=== PATIENT | male | born 1960 | race Caucasian/White ===

== ENCOUNTER 2025-06-01 10:49 | Day surgery (SDC) | payer BC, SELFPAY ==
--- OUTSIDE RECORDS SUMMARY | 2024-05-31 09:45 | XMS_ITS ---
Author Organization [facility] [place] Address [address] [facility] [address] [place] [address] Care Team Providers Care Supervisor Lamp Shades Name Role Phone Migration, Provider Unavailable Unavailable REASON FOR VISIT Sick Visit Encounters Encounter Location Date Provider Diagnosis [facility], [address] [place] [address] 05/31/2024 Provider Migration Plan Of Treatment Next Appt Details Provider Name:Margaret Zeng, 08/12/2025 04:00:00 PM, [address] [place] [address], Suite [facility], [place], [address], [phone] Progress Notes * DAVINALIZET SorensenDOB:1960 ( 64 yo M)Acc No.[id number]:05/31/2024 Progress Notes Patient: LIZET BALL Provider: Krystin Acosta :1960 A ge:63 Y S ex:Male Date:05/31/2024 Address:[address] [place], [place] [phone] Subjective: * Chief Complaints: * S ick Visit * Ocular Surgical History: Objective: Vision Examination: * Electronic signature of Prov ider Migration on 05/25/2025 at 07:43 PM EDT Sign off status: Pending * Provider: Krystin orr Migration Date: Generated for Nkechi rosado/Kev/eTransmitting on: 07:43 PM EDT
--- OUTSIDE RECORDS SUMMARY | 2024-05-31 14:29 | XMS_ITS | Encounter Summary ---
Author Organization [facility] [place] [address] Care Team Providers Care Newspaper Clipper Name Role Phone Robles Box MD Primary Care Provider Encounter Details Date Type Department Care Team (Latest Contact Info) Description 05/31/2024 2:29 PM EDT Hospital Encounter TH HISTORIC ENCOUNTERS EASTERN CONVERSION ONLY Robles Box MD [address] [facility] [address] [place] [address] Pain in unspecified shoulder Social History Tobacco Use Types Packs/Day Years Used Date Smoking Tobacco: Former Smokeless Tobacco: Never Sex and Gender Information Value Date Recorded Sex Assigned at Male 06/17/2024 1:54 PM EST Legal Sex Male 2:17 PM EST Gender Identity Male 06/17/2024 1:54 PM EST Sexual Orientation Not on file documented as of this encounter Plan of Treatment Not on file documented as of this encounter Procedures Procedure Name Priority Date/Time Associated Diagnosis Comments CR FEMUR =>2 VIEWS BL Routine 06/01/2024 11:12 AM EDT Pain in unspecified shoulder CR SHOULDER RT MIN 2 VIEW Routine 06/01/2024 11:10 AM EDT Pain in unspecified shoulder documented in this encounter Results * CR FEMUR =>2 VIEWS BL (06/01/2024 11:12 AM EDT) Anatomical Region Laterality Modality Radiographic Caroline ging 05/31/2024 2:33 PM EDT Narrative 06/01/2024 11:12 AM EDT [facility] Diagnostic Imaging Department [address] [place] [address] Patient: LIZET RICHARDS./Age/Sex: 1960 - 63 - M Unit#: [id number] Location/Status: SPDIGEN/REG CLI Mnemonic[id number] Ordering Physician: ROBLES BOX MD CR Femur =>2 Views BL - 05/31/24 - 2794 Report Status:Signed INDICATION: bilateral leg pain, arthritis FINDINGS: 2 views of both femurs were obtained. There is no evidence of fracture or dislocation. No radiopaque foreign body or periosteal reaction is noted. There is no significant soft tissue abnormality. No significant arthritic changes noted. CONCLUSION: No evidence of bilateral femur fracture or dislocation. Dictating Physician: KRISTINA VICTORIA MD Electronically Signed by: KRISTINA VICTORIA MD Dic Date/Time: 06/01/24 1110 Sign date/Time: 06/01/24 1112 Procedure Note Kristina Victoria MD - 06/05/2024 [facility] Diagnostic Imaging Department [address] [place] [address] Patient: LIZET RICHARDS/Age/Sex: 1960 - M Unit#: [id number] Location/Status: SPDIGEN/REG CLI Mnemonic/Ordering Site: [id number]/[facility]DI Ordering Physician: ROBLES BOX MD CR Femur =>2 Views BL - 05/31/24 - 1453 Report Status:Signed INDICATION: bilateral leg pain, arthritis FINDINGS: 2 views of both femurs were obtained. There is no evidence of fracture or dislocation. No radiopaque foreign body or periosteal reactionis noted. There is no significant soft tissue abnormality. No significantarthritic changes noted. CONCLUSION: No evidence of bilateral femur fracture or dislocation. Dictating Physician: KRISTINA VICTORIA MD Electronically Signed by: KRISTINA VICTORIA MD Dic Date/Time: 06/01/24 1110 Sign date/Time: 06/01/24 1112 us Robles Box MD IMG XR PROCEDURES Final Res ult * CR SHOULDER RT MIN 2 VIEW (06/01/2024 11:10 AM EDT) Anatomical Region Laterality Modality Radiographic Caroline ging 05/31/2024 2:33 PM EDT Narrative 06/01/2024 11:10 AM EDT [facility] Diagnostic Imaging Department [address] [place] [address] Patient: LIZET RICHARDS./Age/Sex: 1960 - M Unit#: [id number] Location/Status: SPDIGEN/REG CLI Mnemonic/Ordering Site: SHOULDRT/[facility] Ordering Physician: ROBLES BOX MD CR Shoulder RT Min 2 View - 05/31/24 - 2994 Report Status:Signed INDICATION: Shoulder pain FINDINGS: Minimum of 2 views of the right shoulder were obtained. No prior studies available for comparison. No fracture or dislocation. No radiopaque foreign body or periosteal reaction is noted. No significant soft tissue abnormality. Moderate degenerative changes along the AC joint. IMPRESSION: Degenerative changes without acute fracture or dislocation. Dictating Physician: KRISTINA VICTORIA MD Electronically Signed by: KRISTINA VICTORIA MD Dic Date/Time: 06/01/241109 Sign date/Time: 06/01/24 111 Procedure Note Kristina Victoria MD - 06/05/2024 [facility] Diagnostic Imaging Department [address] [place] [address] Patient: LIZET RICHARDS/Age/Sex: 1960 - 63 - M Unit#: [id number] Location/Status: SPDIGEN/REG CLI Mnemonic/Ordering Site: SHOULDRT/[facility]DI Ordering Physician: ROBLES BOX MD CR Shoulder RT Min 2 View - 05/31/24 - 1454 Report Status:Signed INDICATION: Shoulder pain FINDINGS: Minimum of 2 views of the right shoulder were obtained. Noprior studies available for comparison. No fracture or dislocation. No radiopaque foreign body or periostealreaction is noted. No significant soft tissue abnormality. Moderate degenerativechanges along the AC joint. IMPRESSION: Degenerative changes without acute fracture or dislocation. Dictating Physician: KRISTINA VICTORIA MD Electronically Signed by: KRISTINA VICTORIA MD Dic Date/Time: 06/01/24 1110 Sign date/Time: 06/01/24 1110 Robles Box MD IMG XR PROCEDURES Final Res ult documented in this encounter Visit Diagnoses Diagnosis Pain in unspecified shoulder documented in this encounter Care Teams Newspaper Clipper Relationship Specialty Start Date End Date Robles Box MD [address] [place] [address] PCP - General Internal Medicine 07/13/18 documented as of this encounter
--- OUTSIDE RECORDS SUMMARY | 2025-02-23 07:30 | XMS_ITS ---
Author Organization [facility] [place] Address [address] [facility] [address] [place] [address] Care Team Providers Care Support Assistant Name Role Phone Margaret Zeng Unavailable [phone] Allergies No Known Allergies REASON FOR VISIT present for medication refill Medications Medication SIG (Take, Route, Frequency, Duration) Notes Start Date End Date Status Allopurinol 100 MG Tablet 1 tablet Orall y Once a day; Duration: 30 days 02/23/2025 Active Indomethacin 50 MG Capsule 1 capsule wit h food or milk Orally Twice a day Active Viagra 100 MG Tablet 1 tablet as needed Orally Once a day; Duration: 30 day(s) 01/27/2025 02/26/2025 Active amLODIPine Besylate 2.5 MG Tablet 1 tablet Orally Once a day; Duration: 30 days 02/23/2025 Active Losartan Potassium 100 MG Tablet 1 tablet Orally Once a day; Duration: 90 days Active Social History Section Notes: denies smoking alcohol-12 pack beer weekly caffeine-little to none Problems Problem Type SNOMED Code ICD Code Onset Dates Problem Status W/U Status Risk Notes Problem Primary gout (86910169) Idiopathic gout, unspecified site (M10.00) Active confirmed Vital Signs Blood pressure systolic 150 mm Hg 02/24/20 25 Blood pressure diastolic 88 mm Hg 025 Heart Rate 85 /min 02/23/2025 Respiratory Rate 20 /min 02/23/2025 Height 71 in 02/23/2025 Weight 203 lbs 02/23/2025 BMI 28.31 kg/m2 02/23/2025 Oximetry 97 % 02/23/2025 Height-cm 180.34 cm 02/23/2025 Weight-kg 92.08 kg 02/23/2025 Encounters Encounter Location Date Provider Diagnosis [facility] [address] [facility] [address] [place] [address] 02/23/2025 Margaret Zeng Benign essential hypertension I10 and Idiopathic gout, unspecified site M10.00 Assessments Encounter Date Diagnosis (ICD Code) Assessment Notes Treatment Notes Treatment Clinical Notes Section Notes 02/23/2025 Benign essential hypertension (ICD-10 - I10) 02/23/2025 Idiopathic gout, unspecified site (ICD-10 - M10.00) Plan Of Treatment Medication Medication Name Sig Start Date Stop Date Notes Allopurinol 100 MG Tablet 1 tablet Orall y Once a day; Duration: 30 days 02/23/2025 amLODIPine Besylate 2.5 MG Tablet 1 tablet Orally Once a day; Duration: 30 days 02/23/2025 Losartan Potassium 100 MG Tablet 1 table t Orally Once a day; Duration: 90 days Next Appt Details Provider Name:Margarether Zeng, 08/12/2025 04:00:00 PM, [address] [facility], [address] [facility], [place], [address], [phone] History and Physical Notes * HPI (History of Present Illness) Category Sub-Category Detail Notes Category Not es Depression screening PHQ-9 Little inte rest or pleasure in doing things: Not at all Feeling down, depressed, or hopeless: No t at all Trouble falling or staying asleep, or sl eeping too much: Not at all Feeling tired or having little energy: S everal days Poor appetite or overeating: Not at all Feeling bad about yourself o r that you are a failure, or have let yourself or your family down: Not at all Trouble concentrating on thi ngs, such as reading the newspaper or watching television: Not at all Moving or speaking so slowly that other people could have noticed; or the opposite, being so fidgety or restless that you have been moving around a lot more than usual: Not at all Thoughts that you would be b delfina off or of hurting yourself in some way: Not at all Total Score: 1 Interpretation: Minimal Depression Progress Notes * LIZET GHOSHDOB:1960 ( 64 yo M)Acc No.[id number]:02/23/2025 Progress Notes Patient: Galina JANELIZET Sorensen Provider: Sandra Zeng :1960 A ge:64 Y S ex:Male Date:02/23/2025 Address:[address] [place], [place] [id number] Subjective: * Chief Complaints: * P resent for medication refill * HPI: D epression screening: PHQ-9 L ittle interest or pleasure in doing things N ot at all, F eeling down, depressed, or hopeless N ot at all, T rouble falling or staying asleep, or sleeping too much N ot at all, F eeling tired or having little energy S everal days, P oor appetite or overeating N ot at all, F eeling bad about yourself or that you are a failure, or have let yourself or your family down N ot at all, T rouble concentrating on things, such as reading the newspaper or watching television N ot at all, M oving or speaking so slowly that other people could have noticed; or the opposite, being so fidgety or restless that you have been moving around a lot more than usual N ot at all, T houghts that you would be better off or of hurting yourself in some way N ot at all, T otal Score 1 ,?Interpretation M inimal Depression. * Medical History: Eye Dr Medical History Verified * Surgical History: right elbow and face Surgical History verified. * Hospitalization/Major Diagno stic Procedure: Denies Past Hospitalization. * Family History: F ather: . M other: . P aternal Grandfather: . P aternal Grandmother: . M aternal Grandfather: . M aternal Grandmother: . B rother: alive. 2 brother(s) - healthy. 2 son(s) - healthy. . denies health care proxy. * Social History: Social History Verified. d enies smoking alcohol-12 pack beer weekly caffeine-little to none. * Medications: T akingLosartan Potassium 100 MG Tablet 1 tablet Orally Once a day Indomethacin 50 MG Capsule 1 capsule with food or milk Orally Twice a day Viagra 100 MG Tablet 1 tablet as needed Orally Once a day , stop date 02/26/2025Medication List reviewed and reconciled with the patientTaking Losartan Potassium 100 MG Tablet 1 tablet Orally Once a day Taking Indomethacin 50 MG Capsule 1 capsule with food or milk Orally Twice a day Taking Viagra 100 MG Tablet 1 tablet as needed Orally Once a day , stop date 02/26/2025Medication List reviewed and reconciled with the patient * Allergies: N .K.D.A.yesAllergies Verified. Objective: * Vitals: B P:150/88mm Hg, HR:85/min, RR:20/min, Oxygen sat %:97%, Ht: 71 in, Wt:203lbs, BMI:28.31Index, Wt-k.08 kg, Ht-cm: 180.34 cm, Body Surface Area: 2.15. Assessment: * Assessment: 1. B enign essential hypertension - I10 2 . I diopathic gout, unspecified site - M10.00 Plan: * Treatment: 2. I diopathic gout, unspecified site Start Allopurinol Tablet, 100 MG, 1 tablet, Orally, Once a day, 30 days, 30, Refills 3. * Electronic signature of Maurice her Zeng on 05/25/2025 at 07:42 PM EDT Sign off status: Pending * Provider: Sandra Zeng Date: 0 02/23/2025 Generated for Nkechi rosado/Kev/Drew on: 1 07:42 PM EDT
--- OUTSIDE RECORDS SUMMARY | 2025-05-24 09:15 | XMS_ITS ---
Author Organization [facility] [place] Address [address] [facility] [facility] [address] [place] [address] Care Team Providers Care Banjo Repairer Name Role Phone Margaret Zeng Unavailable [phone] Allergies Allergen (clinical drug ingredient) Drug/Non Drug Allergy documented on EMR Reaction Allergy Type Onset Date Status Iodinated contrast media (substance) Iodinated Contrast Media Unknown Drug Allergy Active REASON FOR VISIT Clr for Eye Sx, Patient having eye surgery Medications Medication SIG (Take, Route, Frequency, Duration) Notes Start Date End Date Status Allopurinol 100 MG Tablet 1 tablet Orall y Once a day; Duration: 30 days 02/23/2025 Not-Takin g amLODIPine Besylate 2.5 MG Tablet 1 tablet Orally Once a day; Duration: 30 days 02/23/2025 Active Losartan Potassium 100 MG Tablet 1 tablet Orally Once a day; Duration: 90 days Active Indomethacin 50 MG Capsule 1 capsule with food or milk Orally Twice a day As needed Active Social History Section Notes: denies smoking alcohol-12 pack beer or less weekly caffeine-little to none Substances: Denies Vital Signs Blood pressure systolic 135 mm Hg 05/24/20 25 Blood pressure diastolic 80 mm Hg 025 Heart Rate 94 /min 05/24/2025 Respiratory Rate 19 /min 05/24/2025 Height 71 in 05/24/2025 Weight 207.8 lbs 05/24/2025 BMI 28.98 kg/m2 05/24/2025 Oximetry 96 % 05/24/2025 Height-cm 180.34 cm 05/24/2025 Weight-kg 94.26 kg 05/24/2025 Encounters Encounter Location Date Provider Diagnosis [facility], [address] [address] 05/24/2025 Margaret Zeng Plan Of Treatment Next Appt Details Provider Name:Margaret Zeng, 08/12/2025 04:00:00 PM, [address] [facility], [address], [place], [address], [phone] Progress Notes * LIZET GHOSHDOB:1960 ( 64 yo M)Acc No.[id number]:05/24/2025 Patient: LIZET BALL Provider: Sandra owen Hongmeredith :1960 A ge:64 Y S ex:Male Date:05/24/2025 Address:[address] [place], [place] [id number] Subjective: * Chief Complaints: * C lr for Eye SxPatient having eye surgery * Medical History: Gout, HTN Medical History Verified * Surgical History: right elbow and face cataracts * Family History: F ather: . M other: . P aternal Grandfather: . P aternal Grandmother: . M aternal Grandfather: . M aternal Grandmother: . B rother: alive. 2 brother(s) - healthy. 2 son(s) - healthy. . F amily History Verified..? denies health care proxy. * Social History: Social History Verified. d enies smoking alcohol-12 pack beer or less weekly caffeine-little to none Substances: Denies. * Medications: T akingIndomethacin 50 MG Capsule 1 capsule with food or milk Orally Twice a day As neededLosartan Potassium 100 MG Tablet 1 tablet Orally Once a day amLODIPine Besylate 2.5 MG Tablet 1 tablet Orally Once a day Taking Indomethacin 50 MG Capsule 1 capsule with food or milk Orally Twice a day As neededTaking Losartan Potassium 100 MG Tablet 1 tablet Orally Once a day Taking amLODIPine Besylate 2.5 MG Tablet 1 tablet Orally Once a day Not-TakingAllopurinol 100 MG Tablet 1 tablet Orally Once a day Not- Taking Allopurinol 100 MG Tablet 1 tablet Orally Once a day * Allergies: I odinated Contrast MediayesAllergies Verified. Objective: * Vitals: B P:135/80mm Hg, HR:94/min, RR:19/min, Oxygen sat %:96%, Ht: 71 in, Wt:207.8lbs, BMI:28.98Index, Wt-k.26 kg, Ht-cm: 180.34 cm, Body Surface Area: 2.17. * Electronic signature of Maurice Zeng on 05/25/2025 at 07:42 PM EDT Sign off status: Pending * Provider: Sandra Zeng Date: 1 Generated for Nkechi rosado/Kev/Drwe on: 1 07:42 PM EDT
--- OUTSIDE RECORDS SUMMARY | 2025-05-25 19:42 | XMS_ITS | Patient Health Record ---
Author Organization [facility], [place] Address [address] [facility] [address] [place] [address] Care Team Providers Care Fireboat Operator Name Role Phone Hugo Garcia Unavailable [phone] Migration, Provider Unavailable Unavailable Margaret Zeng Unavailable [phone] Allergies Allergen (clinical drug ingredient) Drug/Non Drug Allergy documented on EMR Reaction Allergy Type Onset Date Status Iodinated contrast media (substance) Iodinated Contrast Media Unknown Drug Allergy Active Reason For Referral No Information Medications Medication SIG (Take, Route, Frequency, Duration) [...] alcohol-12 pack beer weekly caffeine-little to none denies smoking alcohol-12 pack beer or less weekly caffeine-little to none Substances: Denies Problems Problem Type SNOMED Code ICD Code Onset Dates Problem Status W/U Status Risk Notes Problem Primary gout (57750191) Idiopathic gout, unspecified site (M10.00) Active confirmed Vital Signs Heart Rate 94 /min 05/24/2025 Respiratory Rate 19 /min 05/24/2025 Height-cm 180.34 cm 05/24/2025 Oximetry 96 % 05/24/2025 Blood pressure diastolic 80 mm Hg 05/24/2025 Weight-kg 94.26 kg 05/24/2025 Height 71 in 05/24/2025 Blood pressure systolic 135 mm Hg 05/24/2025 Weight 207.8 lbs 05/24/2025 BMI 28.98 kg/m2 05/24/2025 Encounters Encounter Location Date Provider Diagnosis [facility] [place] [address] [facility] [address] [place] [address] 05/31/2024 Provider Migration [facility] [place] [address] [facility] [address] [place] [address] 02/23/2025 Margaret Zeng Benign essential hypertension I10 and Idiopathic gout, unspecified site M10.00 [facility] [place] [address] [facility] [address] [place] [address] 05/24/2025 Margaret Zeng [facility], [address] [address] 01/25/2025 Hugo Garcia [facility], [address] [address] 01/27/2025 Hugo Garcia Assessments Encounter Date Diagnosis (ICD Code) Assessment Notes Treatment Notes Treatment Clinical Notes Section Notes 02/23/2025 Benign essential hypertension (ICD-10 - I10) 02/23/2025 Idiopathic gout, unspecified site (ICD-10 - M10.00) Plan Of Treatment Next Appt Details Provider Name:Margaret Zeng, 08/12/2025 04:00:00 PM, [address] [place] [address], [place] [address], [place], [address], [phone] Insurance Providers Payer Name Payer Address Payer Phone Subscriber Number Group Number Insured Name Patient Relationship to Insured Coverage Start Date Coverage End Date [employer] [address] [place] [phone] [id number] LIZET GHOSH Self - patient is the insured Medical (General) History Medical History History ICD Code Gout, HTN Surgical History Surgery Date(Month/Year) right elbow and face cataracts
--- OUTSIDE RECORDS SUMMARY | 2025-05-25 19:42 | XMS_ITS | Clinical Summary ---
Author Organization [facility] Address [address] [place] [address] Care Team Providers Care Preschool Teacher Aide Name Role Phone Robles Davidson Primary Care Provider Allergies No known active allergies Medications oxyCODONE IR (ROXICODONE) 5 mg tablet Take 1 tablet (5 mg total) by mouth every 6 hours as needed (Severe pain). Max Daily Amount: 20 mg 14 tablet 07/22/2022 Active Active Problems Problem Noted Date Diagnosed Date Lateral epicondylitis of right elbow 07/19/2022 Overview (07/19/2022): Added automatically from request for surgery [id number] Social History Tobacco Use Types Packs/Day Years Used Date Smoking Tobacco: Never Assessed Sex and Gender Information Value Date Recorded Sex Assigned at Not on file Legal Sex Male 10:47 AM EDT Gender Identity Not on file Sexual Orientation Not on file Plan of Treatment Health Maintenance Due Date Last Done Comments Cologuard 1960 Colon Cancer Screening 1960 Colonoscopy 1960 FOBT / Fit Test 1960 HIV Screening 1960 Hepatitis C Screening 1960 Sigmoidoscopy 1960 DTaP,Tdap,and Td Vaccines (1 - Tdap) 12/30/1981 Pneumococcal Vaccine: 50+ Ye ars (1 of 1 - PCV) 12/30/2009 Zoster Vaccines (1 of 2) 12/30/2009 Alcohol/Substance Use Screening 08/04/2024 Depression Screening and Follow-Up 08/04/2024 Health Care Proxy Review 08/04/2024 Social Drivers of Health Lili ual Screening 08/04/2024 COVID-19 Vaccine (2 - 2024-2 6 season) 2025 12/07/2020 Influenza Vaccine (#1) 2025 RSV Vaccine (60+ years old a nd patients) (1 - 1-dose 75+ series) 12/30/2034 Hepatitis B Vaccines Aged Out No long er eligible based on patient's age to complete this topic Insurance [facility] HMO/POS Care Teams Preschool Teacher Aide Relationship Specialty Start Date End Date Robles Davidson [address] [place] [address] PCP - General Internal Medicine 06/05/22
--- OUTSIDE RECORDS SUMMARY | 2025-05-25 19:42 | XMS_ITS | Clinical Summary ---
Author Organization [facility] Address [address] [place] [phone] Phone Care Team Providers Care Ladle Car Operator Name Role Phone Robles Davidson MD Primary Care Provider Allergies Active Allergy Reactions Criticality Noted Date Comments Iodinated Contrast Media 11/25/2017 Dye [iv Contrast Dye] Medications losartan (COZAAR) 100 mg tablet TAKE 1 TABLET BY MOUTH EVERY NIGHT AFTER MEALS 05/31/2024 Active sildenafiL (VIAGRA) 100 mg tablet Take 1 tablet (100 mg total) by mouth 1 (one) time each day if needed. 10/20/2023 Active Active Problems Problem Noted Date Diagnosed Date Basal cell carcinoma of skin 11/27/2017 Overview (06/23/2024): Left anglican - nodular type 11/2017 - Mohs 01/01/18 Hypertension 11/25/2017 Squamous cell skin cancer 11/25/2017 Overview (06/23/2024): In situ - scalp 06/2014 - Mohs In situ - left forehead/anglican - Mohs 01/01/18 Medical History Medical History Date Comments Squamous cell skin cancer 11/25/2017 DX:Squ amous cell skin cancer; COMMENT: In situ - scalp 06/2014 - Mohs Hypertension 11/25/2017 DX:Hypertension Basal cell carcinoma of skin 11/27/2017 DX: Basal cell carcinoma of skin; COMMENT: Left anglican - nodular type 11/2017 Social History Tobacco Use Types Packs/Day Years Used Date Smoking Tobacco: Former Smokeless Tobacco: Never Sex and Gender Information Value Date Recorded Sex Assigned at Male 06/17/2024 1:54 PM EST Legal Sex Male 2:17 PM EST Gender Identity Male 06/17/2024 1:54 PM EST Sexual Orientation Not on file Obstetrics History Last Filed Vital Signs Vital Sign Reading Time Taken Comments Blood Pressure - - Pulse - - Temperature - - Respiratory Rate - - Oxygen Saturation - - Inhaled Oxygen Concentration - - Weight 93.9 kg (207 lb) 06/28/2024 12:59 PM EST Height 180.3 cm (5' 11 ) 06/28/2024 12:59 PM EST Body Mass Index 28.87 06/28/2024 12:59 PM EST Plan of Treatment Health Maintenance Due Date Last Done Comments Colorectal Cancer Screening: Colonoscopy 1959 DTaP,Tdap,and Td Vaccines (1 - Tdap) 12/30/1978 Zoster Vaccines (1 of 2) 12/30/1978 Pneumococcal Vaccine: 50+ Ye ars (1 of 1 - PCV) 12/30/2009 COVID-19 Vaccine (2 - Pfizer risk series) 12/28/2020 12/07/2020 Abdominal Aortic Aneurysm (A AA) Screen 07/03/2022 Cholesterol Screening (Lipid Panel) 07/03/2022 Hepatitis C Screening 07/03/2022 Social Influencers of Health Screening 07/03/2022 Hypertension/CHF/CAD Annual BMP Blood Test 07/19/2022 05/25/2025 Depression Screening 08/04/2024 Falls Risk Assessment 12/30/2024 Influenza Vaccine (#1) 2025 RSV Immunization Adult Patie nts (1 - 1-dose 75+ series) 12/30/2034 HIB Vaccines Aged Out No longer eligi ble based on patient's age to complete this topic HPV Vaccines Aged Out No longer eligi ble based on patient's age to complete this topic Hepatitis A Vaccines Aged Out No long er eligible based on patient's age to complete this topic Hepatitis B Vaccines Aged Out No long er eligible based on patient's age to complete this topic IPV Vaccines Aged Out No longer eligi ble based on patient's age to complete this topic MMR Vaccines Aged Out No longer eligi ble based on patient's age to complete this topic Meningococcal ACWY Vaccine Aged Out N o longer eligible based on patient's age to complete this topic Meningococcal B Vaccine Aged Out No l onger eligible based on patient's age to complete this topic RSV Immunization Patients Un yudi 20 months Aged Out No longer eligible b ased on patient's age to complete this topic Varicella Vaccines Aged Out No longer eligible based on patient's age to complete this topic Procedures Procedure Name Priority Date/Time Associated Diagnosis Comments CBC WITH AUTO DIFFERENTIAL Routine 05/25/2025 12:38 PM EDT Encounter for general adult medical examination with abnormal findings CBC AND DIFFERENTIAL Routine 05/25/2025 12:38 PM EDT Encounter for general adult medical examination with abnormal findings COMPREHENSIVE METABOLIC PANEL Routine 05/25/2025 12:38 PM EDT Encounter for general adult medical examination with abnormal findings from Last 3 Months Results * (ABNORMAL) CBC auto differential (05/25/2025 12:38 PM EDT) WBC 4.7(L) 4.8 - 10.8 K/mcL [facility] RBC 4.30(L) 4.50 - 5.50 M/mcL LAB HEMETOLOGY METHOD 05/25/2025 3:26 PM [facility] Hemoglobin 13.2(L) 13.5 - 17.5 g/dL LAB HEMETOLOGY METHOD 05/25/2025 3:26 PM [facility] Hematocrit 40.2(L) 42.0 - 54.0 % LAB HEMETOLOGY METHOD 05/25/2025 3:26 PM EDT [facility] MCV 92.8 79.0 - 98.0 FL LAB HEMETOLOGY METHOD 05/25/2025 3:26 PM [facility] MCH 30.5 27.0 - 32.0 pcg LAB HEMETOLOGY METHOD 05/25/2025 3:26 PM [facility] MCHC 32.8 32.0 - 37.0 g/dL LAB HEMETOLOGY METHOD 05/25/2025 3:26 PM EDT [facility] RDW 13.1 11.0 - 15.0 % LAB HEMETOLOGY METHOD 05/25/2025 3:26 PM EDT [facility] Platelets 264 130 - 400 K/mcL LAB HEMETOLOGY METHOD 05/25/2025 3:26 PM [facility] MPV 11.9(H) 7.0 - 11.0 FL LAB HEMETOLOGY METHOD 05/25/2025 3:26 PM EDT [facility] NRBC 0.0 <1.0 % LAB HEMETOLOGY METHOD 05/25/2025 3:26 PM EDT [facility] NRBC Absolute 0.00 <0.10 K/mcL LAB HEMETOLOGY METHOD [facility] Neutrophils Relative 55.0 % LAB HEMETOLOGY METHOD 05/25/2025 3:26 PM EDT [facility] Lymphocytes Relative 28.0 % LAB HEMETOLOGY METHOD 05/25/2025 3:26 PM T [facility] Monocytes Relative 12.5 % LAB HEMETOLOGY METHOD 05/25/2025 3:26 PM [facility] Eosinophils Relative 3.2 % LAB HEMETOLOGY METHOD [facility] Basophils Relative 1.1 % LAB HEMETOLOGY METHOD 05/25/2025 3:26 PM EDT [facility] Immature Granulocytes Relative 0.2 % LAB [facility]EMETOLOGY [facility] Neutrophils Absolute 2.59 1.50 - 7.00 K/mcL LAB HEMETOLOGY METHOD 05/25[facility]25 [facility] Lymphocytes Absolute 1.32 1.00 - 5.00 K/mcL LAB HEMETOLOGY METHOD 05/25/2025 3:26 PM EDT [facility] Monocytes Absolute 0.59 0.20 - 1.00 K/[facility] LAB HEMETOLOGY METHOD 05/25/2025 3:26 PM EDT [facility] Eosinophils Absolute 0.15 0.00 - 0.50 K/[facility] LAB HEMETOLOGY METHOD 05/25/2025 3:26 PM EDT [facility] Basophils Absolute 0.05 0.00 - 0.20 K/[facility] LAB HEMETOLOGY METHOD 05/25/2025 3:26 PM EDT [facility] Immature Granulocytes Absolute 0.01 0.00 - 0.03 K/[facility] LAB HEMETOLOGY METHOD 05/25/2025 3:26 PM EDT [facility] Blood Venous blood specimen / Unknown Venipuncture / Unknown 05/25/2025 12:38 PM EDT 05/25/2025 3:14 PM EDT Margaret SINGH LAB BLOOD ORDERABLES Final Result [facility] [address] [place] [address], * Comprehensive metabolic panel (05/25/2025 12:38 PM EDT) Sodium 142 133 - 145 mmol/L LAB CHEMISTRY METHOD 05/25/2025 5:17 PM EDT [facility] Potassium 4.0 3.5 - 5.5 mmol/L LAB CHEMISTRY METHOD [facility]/25[facility]25 [facility] Chloride 108 96 - 110 mmol/L LAB CHEMISTRY METHOD 05/25/2025 5:17 PM EDT [facility] CO2 29 21 - 32 mmol/L LAB CHEMISTRY METHOD 05/25/2025 5:17 PM EDT [facility] Anion Gap 5 3 - 11 LAB CHEMISTRY METHOD 05/25/2025 5:17 PM [facility] Glucose 90 70 - 100 mg/dL LAB CHEMISTRY METHOD 05/25/2025 5:17 PM [facility] BUN 12 5 - 25 mg/dL LAB CHEMISTRY METHOD 05/25/2025 5:17 PM [facility] Creatinine 0.85 0.70 - 1.30 mg/dL LAB CHEMISTRY METHOD 05/25/2025 5:17 PM [facility] eGFR 96 >=60 mL/min/1. 73m2 LAB CHEMISTRY METHOD 05/25/2025 5:17 PM [facility] Comment:Calculation based on the Chronic Kidney Disease Epidemiology Collaboration (CKD-EPI) equation refit without adjustment for race. BUN/Creatinine Ratio 14.1 LAB CHEMISTRY METHOD 05/25/2025 5:17 PM [facility] Calcium 9.0 8.5 - 10.5 mg/dL LAB CHEMISTRY METHOD 05/25/2025 5:17 PM [facility] AST (SGOT) 17 10 - 42 unit/L LAB CHEMISTRY METHOD 05/25/2025 5:17 PM [facility] ALT (SGPT) 32 10 - 60 unit/L LAB CHEMISTRY METHOD 05/25/2025 5:17 PM [facility] Alkaline Phosphatase 111 42 - 121 unit/L LAB CHEMISTRY METHOD 05/25/2025 5:17 PM [facility] Total Protein 6.9 6.0 - 8.0 g/dL LAB CHEMISTRY METHOD 05/25/2025 5:17 PM [facility] Albumin 3.9 3.2 - 5.0 g/dL LAB CHEMISTRY METHOD 05/25/2025 5:17 PM [facility] Total Bilirubin 0.7 0.0 - 1.4 mg/dL LAB CHEMISTRY METHOD 05/25/2025 5:17 PM [facility] Blood Venous blood specimen / Unknown Venipuncture / Unknown 05/25/2025 12:38 PM EDT 05/25/2025 3:14 PM EDT Margaret SINGH LAB BLOOD ORDERABLES Final Result [facility] [address] [place] [address], from Last 3 Months Insurance [facility] Care Teams Ladle Car Operator Relationship Specialty Start Date End Date Robles Davidson MD [address] PCP - General Internal Medicine 07/13/18
[2025-05-30 06:54] VITALS: BMI 29.1
[2025-06-01 11:17] VITALS: BMI 28.4
[2025-06-01 11:25] VITALS: BP 155/88; PULSE 78; RESP 14; TEMP 36.4; O2SAT 95
[2025-06-01] MEDS: Lactated Ringers 1,000 ML 100 ML IVCONT (11:39)
--- NOTE | 2025-06-01 14:04 | HO.ANESPROP2 ---
Documented by User: Margaret Yang NP 05/30/25 10:19 HPI - Anesthesia Eval Consult details Narrative: 64yo M for Bilateral Lateral Rectus Eye Muscle Recession [facility] Past Medical History Medical History Osteoarthritis HTN (hypertension) Gout Surgical History Surgical History History of facial surgery History of elbow surgery Hx of bilateral cataract extraction Social History Social History Patient Tobacco Use Status: Never used Tobacco Use of substances other than those prescribed or required for medical reasons: No Are you DNR?: No Advance Directives: No Advance Directives Information Provided: Yes Advance Directives on File: No Meds Allergies Allergy/AdvReac Type Severity Reaction Status Date / Time Iodinated Contrast Media Allergy Unknown Verified 05/30/25 06:50 Home Medications ?Medication ?Instructions ?Recorded ?Confirmed ?Last Taken ?Type amlodipine 2.5 mg tablet 2.5 mg PO DAILY 05/30/25 05/30/25 Unknown History indomethacin 50 mg capsule 50 mg PO BID PRN Outbreak 05/30/25 05/30/25 Unknown History losartan 100 mg tablet 100 mg PO DAILY 05/30/25 05/30/25 Unknown History Exam Height,Weight and Vital Signs: Height 5 ft 10.87 in Weight 94.26 kg Assessment and Plan Assessment Anesthesia Assessment: Chart Reviewed Documented by User: Yisel Palm DO 06/01/25 14:06 [facility] Past Medical History Medical History Osteoarthritis HTN (hypertension) Gout Family History Family history of problems with anesthesia: No Surgical History Surgical History History of facial surgery History of elbow surgery Hx of bilateral cataract extraction History of Problems with Anesthesia: No Social History Social History Patient Tobacco Use Status: Never used Tobacco Use of substances other than those prescribed or required for medical reasons: No Are you DNR?: No Advance Directives: No Advance Directives Information Provided: Yes Advance Directives on File: No Meds Allergies Allergy/AdvReac Type Severity Reaction Status Date / Time Iodinated Contrast Media Allergy Unknown Verified 05/30/25 06:50 Home Medications ?Medication ?Instructions ?Recorded ?Confirmed ?Last Taken ?Type amlodipine 2.5 mg tablet 2.5 mg PO DAILY 05/30/25 05/30/25 Unknown History indomethacin 50 mg capsule 50 mg PO BID PRN Outbreak 05/30/25 05/30/25 Unknown History losartan 100 mg tablet 100 mg PO DAILY 05/30/25 05/30/25 Unknown History Exam Exam Date and Time: 06/01/25 1400 Height,Weight and Vital Signs: Height 5 ft 10.87 in Weight 94.26 kg Vital Signs Temperature 97.6 F 06/01/25 11:25 Pulse Rate 78 06/01/25 11:25 Respiratory Rate 14 06/01/25 11:25 Blood Pressure 155/88 H 06/01/25 11:25 Pulse Oximetry 95 06/01/25 11:25 Oxygen Delivery Method Room Air 06/01/25 11:25 Temperature 97.6 F 06/01/25 11:25 Pulse Rate 78 06/01/25 11:25 Respiratory Rate 14 06/01/25 11:25 Blood Pressure 155/88 H 06/01/25 11:25 Pulse Oximetry 95 06/01/25 11:25 Oxygen Delivery Method Room Air 06/01/25 11:25 Airway Mallampati Class: I TM Dist: >3cm Neck ROM: Full Loose/Missing/Broken Teeth: No (patient denies any loose or broken teeth) Heart: S1S2 Lungs: CTAB Assessment and Plan Assessment Anesthesia Assessment: Anesthesia Plan Discussed and Chart Reviewed Final Anesthetic Review Family History of Problems with Anesthesia: No History of Problems with Anesthesia: No NPO: Yes ASA Class: II Final Preanesthetic Review: No Changes in Pt Med Stat, Meds/Allgs Chart Reviewed, Consent Obtained/Reviewed and Anes Risks/Benef Reviewed Patient Risk: Low Procedure Risk: Low Anesthetic Plan Anesthetic Plan: GA and Agree w/ Assess. and Plan Disposition: Standard PACU
--- NOTE | 2025-06-01 15:09 | P.OPHTHAL_ITS ---
Ophthalmology Operative Note Date of Service: 06/01/25 Narrative: Diagnosis esotropia. Postoperative diagnosis same. Procedure bilateral medial rectus recessions of 3.[address] Perkins. Anesthesia general. Complications none. The patient was brought to the operative room placed under general anesthesia. The eyes were prepped and draped in the usual sterile ophthalmic fashion. A lid speculum was placed in the right eye and a Peritomy was created around the medial rectus muscle. The muscle was hooked and secured with a double-armed Vicryl suture. The muscle was disinserted from the globe and reattached to a position 3.5 mm behind the original insertion. Conjunctiva was closed with interrupted Vicryl sutures. An identical procedure was then performed on the left eye. The patient was then awoken from general anesthesia and discharged to postoperative recovery in good condition.
[2025-06-01 15:13] VITALS: BP 144/83; PULSE 81; RESP 12; TEMP 36.3; O2SAT 94
[2025-06-01 15:18] VITALS: BP 151/92; PULSE 83; RESP 12; O2SAT 93
[2025-06-01 15:23] VITALS: BP 162/101; PULSE 74; RESP 13; O2SAT 96
[2025-06-01 15:28] VITALS: BP 167/104; PULSE 79; RESP 14; O2SAT 100
[2025-06-01] MEDS: Tetracaine HCl 0.5% Oph Sol 5 ML DROPS 1 DROP EYE-BOTH (15:38)
[2025-06-01 15:43] VITALS: BP 158/88; PULSE 73; RESP 14; TEMP 36.2; O2SAT 100
== END 2025-06-01 15:51 | disposition home or self-care (01) ==
PROVIDERS: Visit Provider Ophthalmology
PROC: (CPT 67311; principal; 2025-06-01 14:20)
DX: H53.2 Diplopia (principal); H50.00 Unspecified esotropia; H53.9 Unspecified visual disturbance; I10 Essential (primary) hypertension; M10.9 Gout, unspecified; M17.0 Bilateral primary osteoarthritis of knee; Z79.899 Other long term (current) drug therapy; Z91.041 Radiographic dye allergy status; Z98.890 Other specified postprocedural states
CPT/HCPCS: 67311; J1100; J1885; J2003; J2371; J2405; J2704; J3010